=== PATIENT | female | born 2000 | race Caucasian/White ===

== ENCOUNTER 2022-04-29 20:34 | Emergency (ER) | payer OTHER ==
[~2022-04-29] VITALS: Ht 167.6 cm; Wt 88.6 kg
[2022-04-29] MEDS ORDERED: ketorolac tromethamine 15mg/ml inj. IM ONE (21:10)
[2022-04-29 21:40] VITALS: BP 118/79
== END 2022-04-29 21:43 | disposition home or self-care (01) ==
LOC: ER 20:36
DX: U07.1 COVID-19 (principal); M54.50 Low back pain, unspecified
CPT/HCPCS: 71045; 96372; 99283; J1885